=== PATIENT | male | born 1995 | race Caucasian/White ===

== ENCOUNTER 2017-03-23 12:36 | Emergency (ER) | payer OTHER ==
[2017-03-23 12:45] VITALS: BP 133/81; PULSE 93; RESP 18; TEMP 97.6
[2017-03-23] MEDS ORDERED: IBUPROFEN 600 MG TAB PO STA (13:04)
--- NOTE | 2017-03-23 13:07 | ED ---
General Adult HPI - General Chief complaint: Chest Pain Stated complaint: chest pain 3 days Time Seen by Provider: 03/23/17 12:57 Source: patient, RN notes reviewed Mode of arrival: ambulatory Limitations: no limitations - History of Present Illness Initial comments: Patient is a 21-year-old male who presents emergency room today with a chief complaint of chest pain 3 days. He doesn't that over the last 3 days she's been experiencing a constant "achy" type pain to the left side of the chest wall. He states it's a 4/10. He states it does seem to be worse certain movements at times the left shoulder. He denies any other complaints. Denies any injury or trauma. States never had similar symptoms in the past. Patient denies any recent fever, chills, shortness of breath, back pain, abdominal pain , nausea or vomiting, numbness or tingling, dysuria or hematuria, constipation or diarrhea, headaches or visual changes, or any other complaints. - Related Data Previous Rx's Medication Instructions Recorded Ibuprofen [Motrin] 600 mg PO Q6HR PRN #40 day 03/23/17 Allergies Allergy/AdvReac Type Severity Reaction Status Date / Time No Known Allergies Allergy Verified 03/23/17 13:11 Review of Systems ROS Statement: Those systems with pertinent positive or pertinent negative responses have been documented in the HPI. ROS Other: All systems not noted in ROS Statement are negative. Past Medical History Past Medical History: No Reported History History of Any Multi-Drug Resistant Organisms: None Reported Past Surgical History: No Surgical Hx Reported Past Psychological History: No Psychological Hx Reported Smoking Status: Current every day smoker Past Alcohol Use History: None Reported Past Drug Use History: Marijuana General Exam - General Exam Comments Initial Comments: General: The patient is awake and alert, in no distress, and does not appear acutely ill. Eye: Pupils are equal, round and reactive to light, extra-ocular movements are intact. No nystagmus. There is normal conjunctiva bilaterally. No signs of icterus. Ears, nose, mouth and throat: There are moist mucous membranes and no oral lesions. Neck: The neck is supple, there is no tenderness or JVD. Cardiovascular: There is a regular rate and rhythm. No murmur, rub or gallop is appreciated. Tender palpation to the left side of the anterior chest all towards the axilla. Respiratory: Lungs are clear to auscultation, respirations are non-labored, breath sounds are equal. No wheezes, stridor, rales, or rhonchi. Gastrointestinal: Soft, non-distended, non-tender abdomen without masses or organomegaly noted. There is no rebound or guarding present. No CVA tenderness. Bowel sounds are unremarkable. Musculoskeletal: Normal ROM, no tenderness. Strength 5/5. Sensation intact. Pulses equal bilaterally 2+. Neurological: A&O x 3. CN II-XII intact, There are no obvious motor or sensory deficits. Coordination appears grossly intact. Speech is normal. Skin: Skin is warm and dry and no rashes or lesions are noted. Psychiatric: Cooperative, appropriate mood & affect, normal judgment. Limitations: no limitations Course Vital Signs 03/23/17 03/23/17 12:43 12:50 Temperature 97.6 F Pulse Rate 93 Respiratory 18 18 Rate Blood Pressure 133/81 O2 Sat by Pulse 99 Oximetry EKG Findings - EKG Comments: EKG Findings:: EKG performed at 1252: A 12-lead EKG was performed and interpreted by me as showing the following: Rate is 72, and rhythm is normal sinus. There are normal QRS complexes and normal R-wave progression. ST segments have no elevation or depression, and PA segments appear normal. Medical Decision Making - Medical Decision Making Patient reexamined at this time shows no signs of distress. Patient chest x- ray reviewed and is negative for any acute abnormalities. His EKG shows normal sinus rhythm. His pain is on palpation anterior chest wall. Patient is advised to limit his physical activity follow-up family doctor over the next 2 days. States does have family doctor is unsure of his name. Will make an appointment. Patient advised to use anti-inflammatories for pain. Advised return to emergency room symptoms increase or worsen. States and is in agreement. Disposition Clinical Impression: Chest wall pain Disposition: HOME SELF-CARE Condition: Good Instructions: Costochondritis (ED) Additional Instructions: Please use medication as discussed. Please limit physical activity until follow -up family doctor. Please follow-up with family doctor in the next 2 days. Please return to emergency room if the symptoms increase or worsen or for any other concerns. Prescriptions: Ibuprofen [Motrin] 600 mg PO Q6HR PRN #40 day PRN Reason: Pain Referrals: None,Stated [Primary Care Provider] - 1-2 days Time of Disposition: 13:46
--- NOTE | 2017-03-23 13:26 | XR ---
EXAMINATION TYPE: XR chest 2V DATE OF EXAM: 03/23/2017 COMPARISON: NONE HISTORY: Chest pain TECHNIQUE: Frontal and lateral views of the chest are obtained. FINDINGS: Heart and mediastinum are normal. Lungs are clear. Diaphragm is normal bony thorax appears normal. IMPRESSION: Normal chest
== END 2017-03-23 13:52 | disposition home or self-care (01) ==
LOC: EC 12:36
DX: R07.89 Other chest pain (principal); F17.200 Nicotine dependence, unspecified, uncomplicated
CPT/HCPCS: 71020; 93005; 99285

== ENCOUNTER 2017-04-09 13:38 | Inpatient (IN) | payer OTHER ==
--- NOTE | 2017-04-09 14:19 | ED ---
General Adult HPI - General Source: patient, RN notes reviewed Mode of arrival: ambulatory Limitations: no limitations <Amber Pratt - Last Filed: 04/09/17 16:20> <King Baker - Last Filed: 04/09/17 16:26> - General Chief complaint: Chest Pain Stated complaint: Chest Pain Time Seen by Provider: 04/09/17 14:08 - History of Present Illness Initial comments: 21 yo male presents to the ER with cc of chest pain to the left side of the chest. Patient states stabbing type pain in his head on off the past 3 weeks. Patient states that he does smoke meat as well as he does use cigarettes. Patient states that he takes a deep breath the pain is worse. Patient states if he tries to think that the pain seems to improve. Patient states he hasn't had any increased shortness of breath with this. Patient denies any cough cold like symptoms. Patient states he was concerned due to the pains without that he should be seen again. He was seen a few weeks ago here and he told if it got worse to return if he states that he believes it got worse.Patient denies any recent fever, chills, back pain, abdominal pain, nausea vomiting, numbness or tingling, dysuria or hematuria, constipation or diarrhea, headaches or visual changes, or any other current symptoms. (Amber Pratt) - Related Data Home Medications Medication Instructions Recorded Confirmed No Known Home Medications [No 04/09/17 04/09/17 Known Home Medications] Allergies Allergy/AdvReac Type Severity Reaction Status Date / Time No Known Allergies Allergy Verified 04/09/17 14:49 Review of Systems ROS Other: All systems not noted in ROS Statement are negative. <Amber Pratt - Last Filed: 04/09/17 16:20> ROS Other: All systems not noted in ROS Statement are negative. <King Baker - Last Filed: 04/09/17 16:26> ROS Statement: Those systems with pertinent positive or pertinent negative responses have been documented in the HPI. Past Medical History Past Medical History: Asthma History of Any Multi-Drug Resistant Organisms: None Reported Past Surgical History: No Surgical Hx Reported Past Psychological History: No Psychological Hx Reported Smoking Status: Current every day smoker Past Alcohol Use History: None Reported, Occasional Past Drug Use History: Marijuana <Amber Pratt - Last Filed: 04/09/17 16:20> General Exam Limitations: no limitations <Amber Pratt - Last Filed: 04/09/17 16:20> <King Baker - Last Filed: 04/09/17 16:26> - General Exam Comments Initial Comments: General: The patient is awake and alert, in no distress, and does not appear acutely ill. Eye: Pupils are equal, round and reactive to light, extra-ocular movements are intact; there is normal conjunctiva bilaterally. No signs of icterus. Ears, nose, mouth and throat: There are moist mucous membranes and no oral lesions. Neck: The neck is supple, there is no tenderness. Cardiovascular: There is a regular rate and rhythm. No murmur, rub or gallop is appreciated. Respiratory: Lungs are clear to auscultation, respirations are non-labored, breath sounds are equal. No wheezes, stridor, rales, or rhonchi. Gastrointestinal: Soft, non-distended, non-tender abdomen without masses or organomegaly noted. There is no rebound or guarding present. No CVA tenderness. Bowel sounds are unremarkable. Back: There is no tenderness to palpation in the midline. There is no obvious deformity. No rashes noted. Musculoskeletal: Normal ROM, no tenderness, There is no pedal edema. There is no calf tenderness or swelling. Sensation intact. Pulses equal bilaterally 2+. Neurological: CN II-XII intact, There are no obvious motor or sensory deficits. Coordination appears grossly intact. Speech is normal. Skin: Skin is warm and dry and no rashes or lesions are noted. Psychiatric: Cooperative, appropriate mood & affect, normal judgment. (Amber Pratt) EKG Findings - EKG Comments: EKG Findings:: Markedly sinus bradycardia, ventricular rate 47, rightward axis, mild ST elevation noted diffusely throughout. Concern for possible pericarditis <Amber Pratt - Last Filed: 04/09/17 16:20> Medical Decision Making - Lab Data Result diagrams: 04/09/17 14:20 04/09/17 14:20 - Radiology Data Radiology results: report reviewed, image reviewed <Amber Pratt - Last Filed: 04/09/17 16:20> - Lab Data Result diagrams: 04/09/17 14:20 04/09/17 14:20 <King Baker - Last Filed: 04/09/17 16:26> - Medical Decision Making 21-year-old male presents for left-sided chest pain that is pleuritic in nature. This time lab work and imaging is reviewed. This was concerned due to some elevation of the ST segments throughout the EKG when compared to EKG from 1 week ago of concern for pericarditis. Lab work is negative at this time. This time we will admit the patient to Dr. Brown who Dr. Baker discussed the case with an order an echo cardiogram. The patient is in agreement with the plan. ( JaquanAmber rockwell) Is a 21-year-old male with complaint chest discomfort on again off again for a week. EKG shows small mildly elevated ST segment of multiple leads suggestive of pericarditis. Cardiac enzymes within normal limits. Chest x-ray negative. The patient will be admitted for observation cardiology consultation echocardiogram , Dr. Baker (King Baker) - Lab Data Lab Results 04/09/17 04/09/17 04/09/17 Range/Units 14:20 14:20 14:20 WBC 5.9 (4.0-11.0) k/uL RBC 5.01 (4.30-5.90) m/uL Hgb 16.2 (13.0-17.5) gm/dL Hct 47.1 (39.0-53.0) % MCV 93.9 (80.0-100.0) fL MCH 32.2 (25.0-35.0) pg MCHC 34.3 (31.0-37.0) g/dL RDW 12.5 (11.5-15.5) % Plt Count 199 (150-450) k/uL Neutrophils % 54 % Lymphocytes % 36 % Monocytes % 6 % Eosinophils % 2 % Basophils % 0 % Neutrophils # 3.2 (1.3-7.7) k/uL Lymphocytes # 2.1 (1.0-4.8) k/uL Monocytes # 0.4 (0-1.0) k/uL Eosinophils # 0.1 (0-0.7) k/uL Basophils # 0.0 (0-0.2) k/uL ESR (0-15) mm/hr D-Dimer <0.17 (<0.60) mg/L FEU Sodium 144 (137-145) mmol/L Potassium 4.3 (3.5-5.1) mmol/L Chloride 106 (98-107) mmol/L Carbon Dioxide 27 (22-30) mmol/L Anion Gap 11 mmol/L BUN 13 (9-20) mg/dL Creatinine 0.90 (0.66-1.25) mg/dL Est GFR (MDRD) Af Amer >60 (>60 ml/min/1.73 sqM) Est GFR (MDRD) Non-Af >60 (>60 ml/min/1.73 sqM) Glucose 76 (74-99) mg/dL Calcium 10.2 (8.4-10.2) mg/dL Total Bilirubin 0.7 (0.2-1.3) mg/dL AST 28 (17-59) U/L ALT 28 (21-72) U/L Alkaline Phosphatase 66 (38-126) U/L Creatine Kinase (55-170) U/L CK-MB (CK-2) (0.0-2.4) ng/mL Troponin I (0.000-0.034) ng/mL C-Reactive Protein (<10.0) mg/L Total Protein 7.7 (6.3-8.2) g/dL Albumin 5.0 (3.5-5.0) g/dL 04/09/17 04/09/17 04/09/17 Range/Units 14:20 14:20 14:20 WBC (4.0-11.0) k/uL RBC (4.30-5.90) m/uL Hgb (13.0-17.5) gm/dL Hct (39.0-53.0) % MCV (80.0-100.0) fL MCH (25.0-35.0) pg MCHC (31.0-37.0) g/dL RDW (11.5-15.5) % Plt Count (150-450) k/uL Neutrophils % % Lymphocytes % % Monocytes % % Eosinophils % % Basophils % % Neutrophils # (1.3-7.7) k/uL Lymphocytes # (1.0-4.8) k/uL Monocytes # (0-1.0) k/uL Eosinophils # (0-0.7) k/uL Basophils # (0-0.2) k/uL ESR 2 (0-15) mm/hr D-Dimer (<0.60) mg/L FEU Sodium (137-145) mmol/L Potassium (3.5-5.1) mmol/L Chloride (98-107) mmol/L Carbon Dioxide (22-30) mmol/L Anion Gap mmol/L BUN (9-20) mg/dL Creatinine (0.66-1.25) mg/dL Est GFR (MDRD) Af Amer (>60 ml/min/1.73 sqM) Est GFR (MDRD) Non-Af (>60 ml/min/1.73 sqM) Glucose (74-99) mg/dL Calcium (8.4-10.2) mg/dL Total Bilirubin (0.2-1.3) mg/dL AST (17-59) U/L ALT (21-72) U/L Alkaline Phosphatase (38-126) U/L Creatine Kinase (55-170) U/L CK-MB (CK-2) 1.5 (0.0-2.4) ng/mL Troponin I <0.012 (0.000-0.034) ng/mL C-Reactive Protein <5.0 (<10.0) mg/L Total Protein (6.3-8.2) g/dL Albumin (3.5-5.0) g/dL 04/09/17 Range/Units 14:20 WBC (4.0-11.0) k/uL RBC (4.30-5.90) m/uL Hgb (13.0-17.5) gm/dL Hct (39.0-53.0) % MCV (80.0-100.0) fL MCH (25.0-35.0) pg MCHC (31.0-37.0) g/dL RDW (11.5-15.5) % Plt Count (150-450) k/uL Neutrophils % % Lymphocytes % % Monocytes % % Eosinophils % % Basophils % % Neutrophils # (1.3-7.7) k/uL Lymphocytes # (1.0-4.8) k/uL Monocytes # (0-1.0) k/uL Eosinophils # (0-0.7) k/uL Basophils # (0-0.2) k/uL ESR (0-15) mm/hr D-Dimer (<0.60) mg/L FEU Sodium (137-145) mmol/L Potassium (3.5-5.1) mmol/L Chloride (98-107) mmol/L Carbon Dioxide (22-30) mmol/L Anion Gap mmol/L BUN (9-20) mg/dL Creatinine (0.66-1.25) mg/dL Est GFR (MDRD) Af Amer (>60 ml/min/1.73 sqM) Est GFR (MDRD) Non-Af (>60 ml/min/1.73 sqM) Glucose (74-99) mg/dL Calcium (8.4-10.2) mg/dL Total Bilirubin (0.2-1.3) mg/dL AST (17-59) U/L ALT (21-72) U/L Alkaline Phosphatase (38-126) U/L Creatine Kinase 107 (55-170) U/L CK-MB (CK-2) (0.0-2.4) ng/mL Troponin I (0.000-0.034) ng/mL C-Reactive Protein (<10.0) mg/L Total Protein (6.3-8.2) g/dL Albumin (3.5-5.0) g/dL Disposition Time of Disposition: 16:21 Decision Date: 04/09/17 Decision Time: 16:21 <Amber Pratt - Last Filed: 04/09/17 16:20> <King Baker - Last Filed: 04/09/17 16:26> Clinical Impression: Pericarditis, Chest wall pain Disposition: [facility] Condition: Stable Referrals: Eric Abbasi MD [Primary Care Provider] - 1-2 days
[2017-04-09 14:41] LABS: Basophils % (A) 0 %; CH 32.8; Eosinophils # (A) 0.1 k/uL (0-0.7); Eosinophils % (A) 2 %; HCT 47.1 % (39.0-53.0); HDW 2.35; HGB 16.2 gm/dL (13.0-17.5); Luc # (Auto) 0.12; Luc % (Auto) 2; Lymphocytes # (A) 2.1 k/uL (1.0-4.8); Lymphocytes % (A) 36 %; MCH 32.2 pg (25.0-35.0); MCHC 34.3 g/dL (31.0-37.0); MCV 93.9 fL (80.0-100.0); Mean Platelet Volume 7.4; Monocytes # (A) 0.4 k/uL (0-1.0); Monocytes % (A) 6 %; Neutrophils # (A) 3.2 k/uL (1.3-7.7); Neutrophils % (A) 54 %; RBC 5.01 m/uL (4.30-5.90); RDW 12.5 % (11.5-15.5); WBC 5.9 k/uL (4.0-11.0); WBC (Perox) 5.41
[2017-04-09 14:52] LABS: ALT 28 U/L (21-72); AST 28 U/L (17-59); Alkaline Phosphatase 66 U/L (38-126); Anion Gap 11 mmol/L; Blood Urea Nitrogen 13 mg/dL (9-20); Calcium 10.2 mg/dL (8.4-10.2); Carbon Dioxide 27 mmol/L (22-30); Chloride 106 mmol/L (98-107); Glucose 76 mg/dL (74-99); Non-African American GFR(MDRD) >60 (>60 ml/min/1.73 sqM); Potassium 4.3 mmol/L (3.5-5.1); Sodium 144 mmol/L (137-145); Total Bilirubin 0.7 mg/dL (0.2-1.3); Total Protein 7.7 g/dL (6.3-8.2)
--- NOTE | 2017-04-09 14:58 | XR ---
EXAMINATION TYPE: XR chest 2V DATE OF EXAM: 04/09/2017 COMPARISON: 03/23/17 HISTORY: Chest pain TECHNIQUE: Frontal and lateral views of the chest are obtained. FINDINGS: There is no focal air space opacity. No evidence for pneumothorax. No pleural effusion. The cardiac silhouette size is within normal limits. The osseous structures are grossly intact. IMPRESSION: 1. No acute cardiopulmonary process.
[2017-04-09 15:14] LABS: Creatine Kinase MB 1.5 ng/mL (0.0-2.4); Troponin I <0.012 ng/mL (0.000-0.034)
[2017-04-09] MEDS ORDERED: NALOXONE 0.4 MG/ML 1 ML VIAL IV PRN (16:21)
[2017-04-09] MEDS ORDERED: KETOROLAC 30 MG/ML 1 ML VIAL IVP PRN (16:21)
[2017-04-09] MEDS: SODIUM CHLORIDE 0.9% 1,000 ML IV SCH (17:47)
[2017-04-09 20:22] LABS: Creatine Kinase 86 U/L (55-170)
[2017-04-09 20:36] LABS: Creatine Kinase MB 1.1 ng/mL (0.0-2.4); Troponin I <0.012 ng/mL (0.000-0.034)
[2017-04-10 03:28] LABS: Basophils % (A) 0 %; CH 32.1; CHCM 33.6; Eosinophils # (A) 0.2 k/uL (0-0.7); Eosinophils % (A) 3 %; HCT 45.5 % (39.0-53.0); HDW 2.32; HGB 15.6 gm/dL (13.0-17.5); Luc # (Auto) 0.23; Luc % (Auto) 3; Lymphocytes # (A) 3.2 k/uL (1.0-4.8); Lymphocytes % (A) 41 %; MCHC 34.4 g/dL (31.0-37.0); MCV 95.8 fL (80.0-100.0); Mean Platelet Volume 7.1; Monocytes # (A) 0.4 k/uL (0-1.0); Monocytes % (A) 5 %; Neutrophils # (A) 3.6 k/uL (1.3-7.7); Neutrophils % (A) 47 %; RBC 4.75 m/uL (4.30-5.90); RDW 12.3 % (11.5-15.5); WBC 7.7 k/uL (4.0-11.0); WBC (Perox) 7.82
[2017-04-10 03:37] LABS: Creatine Kinase 83 U/L (55-170)
[2017-04-10 03:39] LABS: ALT 34 U/L (21-72); AST 25 U/L (17-59); Alkaline Phosphatase 62 U/L (38-126); Anion Gap 15 mmol/L; Blood Urea Nitrogen 13 mg/dL (9-20); Calcium 9.8 mg/dL (8.4-10.2); Carbon Dioxide 23 mmol/L (22-30); Chloride 106 mmol/L (98-107); Glucose 93 mg/dL (74-99); Non-African American GFR(MDRD) >60 (>60 ml/min/1.73 sqM); Potassium 3.9 mmol/L (3.5-5.1); Sodium 144 mmol/L (137-145); Total Bilirubin 0.5 mg/dL (0.2-1.3); Total Protein 7.1 g/dL (6.3-8.2)
[2017-04-10 03:49] LABS: Troponin I <0.012 ng/mL (0.000-0.034)
[2017-04-10] MEDS: SODIUM CHLORIDE 0.9% 1,000 ML IV SCH (06:36)
[2017-04-10] MEDS ORDERED: ASPIRIN 325 MG TAB PO SCH (09:00)
[2017-04-10] MEDS ORDERED: COLCHICINE 0.6 MG TAB PO SCH (09:00)
--- NOTE | 2017-04-10 09:15 | P.CRDCN ---
History of Present Illness Consult date: 04/10/17 Requesting physician: Samir Walton Consult reason: chest pain Chief complaint: Chest pain History of present illness: This is a pleasant 21-year-old male with history of nicotine dependence, he states he smokes one pack of cigarettes per day, smokes marijuana daily, no other drug use, no family history of premature coronary artery disease or sudden cardiac , denies hypertension, no diabetes, no hyperlipidemia. He states he's been experiencing chest pain which she describes as a pressure in the chest feels like someone is pressing down on his chest, he has been experiencing this off and on for the past 2 weeks. He denies any recent viral illness or fever. EKG on arrival here showed a normal sinus with diffuse concave ST elevation, Chest x-ray does not reveal any acute cardiopulmonary process. CBC normal, d-dimer negative. Potassium 3.9, BUN 13, creatinine 0.9. Troponins have been negative 3. C-reactive protein less than 5. At the time of my examination this morning, patient denies any chest pain. He was started on colchicine in the emergency room yesterday for suspicion of pericarditis. Past Medical History Past Medical History: Asthma History of Any Multi-Drug Resistant Organisms: None Reported Past Surgical History: No Surgical Hx Reported Past Anesthesia/Blood Transfusion Reactions: No Reported Reaction Smoking Status: Current every day smoker - Past Family History Father Additional Family Medical History / Comment(s): hip surgery Medications and Allergies Home Medications Medication Instructions Recorded Confirmed Type No Known Home Medications [No 04/09/17 04/09/17 History Known Home Medications] Allergies Allergy/AdvReac Type Severity Reaction Status Date / Time No Known Allergies Allergy Verified 04/09/17 14:49 Physical Exam Vitals: Vital Signs Temp Pulse Pulse Resp BP BP Pulse Ox 04/10/17 04:00 97.6 F 50 L 16 97/52 100 04/09/17 23:36 61 16 04/09/17 23:32 97.4 F L 61 16 102/55 98 04/09/17 20:00 97.1 F L 53 L 16 110/63 99 04/09/17 17:00 97.1 F L 46 L 20 109/63 100 04/09/17 16:20 98.2 F 53 L 18 108/68 100 04/09/17 15:23 97.8 F 52 L 18 106/65 99 04/09/17 14:11 18 04/09/17 13:56 98.3 F 82 18 128/73 100 Intake and Output 04/09/17 04/10/17 04/10/17 22:59 06:59 14:59 Intake Total 0 Balance 0 Intake: Intake, IV Titration 0 Amount Sodium Chloride 0.9% 1, 0 000 ml @ 80 mls/hr IV . [id number] DOMENICO Rx#:[id number] Other: # Voids 1 Weight 61.1 kg PHYSICAL EXAMINATION: HEENT: Head is atraumatic, normocephalic. Pupils equal, round. Neck is supple. There is no elevated jugular venous pressure. HEART EXAMINATION: Heart S1, S2 normal. No murmur or gallop heard. CHEST EXAMINATION: Lungs are clear to auscultation and precussion. No chest wall tenderness is noted on palpation or with deep breathing. ABDOMEN: Soft, nontender. Bowel sounds are heard. No organomegaly noted. EXTREMITIES: 2+ peripheral pulses with no evidence of peripheral edema and no calf tenderness noted. NEUROLOGIC patient is awake, alert and oriented -3. . Results 04/10/17 01:58 04/10/17 01:58 Cardiac Enzymes 04/09/17 04/09/17 04/09/17 Range/Units 14:20 14:20 19:46 AST 28 (17-59) U/L CK-MB (CK-2) 1.5 1.1 (0.0-2.4) ng/mL Troponin I <0.012 <0.012 (0.000-0.034) ng/mL 04/10/17 04/10/17 Range/Units 01:58 01:58 AST 25 (17-59) U/L CK-MB (CK-2) 1.0 (0.0-2.4) ng/mL Troponin I <0.012 (0.000-0.034) ng/mL CBC 04/09/17 04/10/17 Range/Units 14:20 01:58 WBC 5.9 7.7 (4.0-11.0) k/uL RBC 5.01 4.75 (4.30-5.90) m/uL Hgb 16.2 15.6 (13.0-17.5) gm/dL Hct 47.1 45.5 (39.0-53.0) % Plt Count 199 194 (150-450) k/uL Comprehensive Metabolic Panel 04/09/17 04/10/17 Range/Units 14:20 01:58 Sodium 144 144 (137-145) mmol/L Potassium 4.3 3.9 (3.5-5.1) mmol/L Chloride 106 106 (98-107) mmol/L Carbon Dioxide 27 23 (22-30) mmol/L BUN 13 13 (9-20) mg/dL Creatinine 0.90 0.90 (0.66-1.25) mg/dL Glucose 76 93 (74-99) mg/dL Calcium 10.2 9.8 (8.4-10.2) mg/dL AST 28 25 (17-59) U/L ALT 28 34 (21-72) U/L Alkaline Phosphatase 66 62 (38-126) U/L Total Protein 7.7 7.1 (6.3-8.2) g/dL Albumin 5.0 4.7 (3.5-5.0) g/dL Current Medications Generic Name Dose Route Start Last Admin Trade Name Freq PRN Reason Stop Dose Admin Aspirin 650 mg 04/10/17 09:00 Aspirin PO BID DOMENICO Colchicine 0.6 mg 04/10/17 09:00 Colcrys PO DAILY DOMENICO Sodium Chloride 1,000 mls @ 80 mls/hr 04/09/17 16:30 04/10/17 06:36 Saline 0.9% IV Not Given .[id number] DOMENICO Naloxone HCl 0.2 mg 04/09/17 16:21 Narcan IV Q2M PRN Opioid Reversal Intake and Output 04/09/17 04/10/17 04/10/17 22:59 06:59 14:59 Intake Total 0 Balance 0 Intake: Intake, IV Titration 0 Amount Sodium Chloride 0.9% 1, 0 000 ml @ 80 mls/hr IV . [id number] DOMENICO Rx#:[id number] Other: # Voids 1 Weight 61.1 kg 04/10/17 01:58 04/10/17 01:58 EKG Interpretations (text) EKG shows diffuse concave upward ST elevation Assessment and Plan Plan: Assessment and plan #1 chest pain atypical for acute coronary syndrome, possible pleurisy. #2 nicotine dependence #3 daily marijuana use Plan We will obtain a sed rate, echocardiogram with Doppler study. Patient has been initiated on Colchicine, which we will discontinue. We will add nonsteroidal anti-inflammatories his medication regime. Further recommendations to follow. Patient has been advised regarding the importance of nicotine cessation. DNP note has been reviewed, I agree with a documented findings and plan of care. Patient was seen and examined.
[2017-04-10] MEDS ORDERED: IBUPROFEN 400 MG TAB PO SCH (13:00)
[2017-04-10 15:02] VITALS: BP 110/68; PULSE 55; RESP 18; TEMP 97.3
--- NOTE | 2017-04-11 09:26 | ECHOF ---
Referral Reason:concern for pericarditis MEASUREMENTS -------- HEIGHT: 177.8 cm WEIGHT: 60.8 kg BP: RVIDd: 1.9 cm (< 3.3) IVSd: 0.8 cm (0.6 - 1.1) LVIDd: 4.6 cm (3.9 - 5.3) LVPWd: 0.8 cm (0.6 - 1.1) IVSs: 1.2 cm LVIDs: 2.8 cm LVPWs: 1.5 cm LAESV Index (A-L): 23.35 ml/m Ao Diam: 2.7 cm (2.0 - 3.7) AV Cusp: 2.3 cm (1.5 - 2.6) LA Diam: 2.2 cm (2.7 - 3.8) MV EXCURSION: 19.262 mm (> 18.000) MV EF SLOPE: 164 mm/s (70 - 150) EPSS: 1.5 cm MV E Khoi: 0.73 m/s MV DecT: 388 ms MV A Khoi: 0.32 m/s MV E/A Ratio: 2.25 RAP: 5.00 mmHg RVSP: 9.20 mmHg FINDINGS -------- Resting bradycardia (HR<60bpm). This was a technically good study. Overall left ventricular systolic function is normal with, an EF between 60 - 65 %. The right ventricle is normal in size and function. Normal LA size by volume 22+/-6 ml/m2. The right atrium is normal in size. The aortic valve is trileaflet, and appears structurally normal. No aortic stenosis or regurgitation. The mitral valve leaflets are mildly thickened. There is trace mitral regurgitation. Trace tricuspid regurgitation present. There is no evidence of pulmonary hypertension. The right ventricular systolic pressure, as measured by Doppler, is 9.20mmHg. Pulmonic valve appears structurally normal. The aortic root size is normal. Normal inferior vena cava with normal inspiratory collapse consistent with estimated right atrial pressure of 5 mmHg. The pericardium is normal. There is no pericardial effusion. CONCLUSIONS -------- 1. Resting bradycardia (HR<60bpm). 2. The right ventricular systolic pressure, as measured by Doppler, is 9.20mmHg. 3. The aortic root size is normal. 4. There is no pericardial effusion. 5. This was a technically good study. 6. Overall left ventricular systolic function is normal with, an EF between 60 - 65 %. 7. Normal LA size by volume 22+/-6 ml/m2. 8. The aortic valve is trileaflet, and appears structurally normal. No aortic stenosis or regurgitation. 9. The mitral valve leaflets are mildly thickened. 10. There is trace mitral regurgitation. 11. Trace tricuspid regurgitation present. 12. There is no evidence of pulmonary hypertension. IVORY CARVER: Shay Osorio RDCS
--- NOTE | 2017-04-13 08:28 | HP ---
This dictation is both H&P and discharge summary. The patient is a 21-year-old who came in with complaints of chest pain and shortness of breath and decreased exercise performance. Patient does not have any family history of sudden cardiac and patient has on and off sharp chest pains changes with position. Patient's chest x-ray is essentially within normal limits. Patient's chest pain is nonpleuritic in nature, not associated with food. Patient was evaluated by Cardiology and please refer to their dictation for further details. The patient has diffuse concave ST elevation and patient denied any recent viral illness or fever. Patient was diagnosed with pericarditis and patient was started on NSAIDs. Colchicine was discontinued. Patient is clinically doing well. Will be discharged on 10 days of NSAIDs. Patient wanted to be discharged. The patient will be discharged on 10 days of NSAIDs to follow with primary care physician and Cardiology as an outpatient. Patient's C-reactive protein is less than 5. Troponins are negative. Creatinine is 0.9 REVIEW OF SYSTEMS: ( ) CARDIOVASCULAR: As described in HPI. PAST MEDICAL HISTORY: Significant for asthma. Patient does smoke. Occasional use of marijuana. FAMILY HISTORY: Father had some kind of hip surgery. Denied any premature coronary artery disease in the family. HOME MEDICATIONS: None. ALLERGIES: No known drug allergies. PHYSICAL EXAMINATION: Temperature 97.5, pulse 50, respiratory rate of 16, blood pressure 97/52, saturating at 100% on room air. ( ) LABORATORY DATA: CBC and CMP essentially within normal limits. Troponins are negative. Chest x-ray negative. D-dimer is less than 0.17. ASSESSMENT AND PLAN: 1. Chest pain with diffuse ST-T wave changes, ST elevations. Consistent with pericarditis. Patient will be discharged on naproxen for 10 days to follow with primary care physician in about a week. 2. Nicotine abuse. Extensive counseling was provided. 3. Marijuana use. Counseling was provided. 4. If patient has any active reflux symptoms the patient was asked to take over -the-counter ranitidine or if he has any acid reflux symptoms from naproxen. 5. Mild sinus bradycardia and low normal blood pressures are normal for his age. This dictation is both H&P and discharge summary. [facility]
== END 2017-04-10 16:19 | disposition home or self-care (01) | DRG 194 ==
LOC: EC 13:38 → 6SEL 16:23
PROVIDERS: ADMIT Internal Medicine; ATTEND Internal Medicine
DX: R09.1 Pleurisy (principal); I31.9 Disease of pericardium, unspecified; F17.210 Nicotine dependence, cigarettes, uncomplicated; F12.90 Cannabis use, unspecified, uncomplicated; J45.909 Unspecified asthma, uncomplicated
CPT/HCPCS: 36415; 71020; 80053; 82550; 82553; 84484; 85025; 85379; 85652; 86140; 93005; 93306; 99285

== ENCOUNTER 2017-06-22 02:38 | Emergency (ER) | payer OTHER ==
[2017-06-22 02:43] VITALS: BP 131/66; PULSE 98; RESP 20; TEMP 98.1
[2017-06-22] MEDS ORDERED: ALPRAZolam 0.5 MG TAB PO STA (02:58)
--- NOTE | 2017-06-22 03:02 | ED ---
General Adult HPI - General Chief complaint: Chest Pain Stated complaint: Chest Pain Time Seen by Provider: 06/22/17 02:50 Source: patient, RN notes reviewed Mode of arrival: ambulatory Limitations: no limitations - History of Present Illness Initial comments: This a 22-year-old male presents emergency Department chief complaint palpitations. Patient states he has intermittent episodes where he feels like his heart is racing superfast. He states it makes him uncomfortable. He states after this was happening he becomes very worried that something was wrong and starts having anxiety and panic attacks. Patient was admitted approximately 2 and half months ago for chest pain in which she had a complete cardiac workup including echocardiogram, cardiology consult, repeat troponin, EKGs. Patient had no acute findings. At that time concerned about possible pericarditis but had no evidence of this. Patient states he is a smoker does smoke marijuana but denies any other illicit drug use. Patient states that he states is very anxious at this time and cannot sleep streaking the emergency department. Patient has a history of cardiac issues denies any hypertension or hyperlipidemia. - Related Data Previous Rx's Medication Instructions Recorded ALPRAZolam [Xanax] 0.25 mg PO DAILY PRN #10 tab 06/22/17 Allergies Allergy/AdvReac Type Severity Reaction Status Date / Time No Known Allergies Allergy Verified 04/09/17 14:49 Review of Systems ROS Statement: Those systems with pertinent positive or pertinent negative responses have been documented in the HPI. ROS Other: All systems not noted in ROS Statement are negative. Past Medical History Past Medical History: Asthma History of Any Multi-Drug Resistant Organisms: None Reported Past Surgical History: No Surgical Hx Reported Past Anesthesia/Blood Transfusion Reactions: No Reported Reaction Past Psychological History: No Psychological Hx Reported Smoking Status: Current every day smoker Past Alcohol Use History: Occasional Past Drug Use History: Marijuana - Past Family History Father Additional Family Medical History / Comment(s): hip surgery General Exam Limitations: no limitations General appearance: alert, in no apparent distress, anxious Head exam: Present: atraumatic, normocephalic, normal inspection Eye exam: Present: normal appearance, PERRL, EOMI. Absent: scleral icterus, conjunctival injection, periorbital swelling ENT exam: Present: normal exam, normal oropharynx, mucous membranes moist Neck exam: Present: normal inspection. Absent: tenderness, meningismus, lymphadenopathy Respiratory exam: Present: normal lung sounds bilaterally. Absent: respiratory distress, wheezes, rales, rhonchi, stridor Cardiovascular Exam: Present: regular rate, normal rhythm, normal heart sounds. Absent: systolic murmur, diastolic murmur, rubs, gallop, clicks Neurological exam: Present: alert, oriented X3, CN II-XII intact Psychiatric exam: Present: anxious Skin exam: Present: warm, dry, intact, normal color. Absent: rash Course Vital Signs 06/22/17 02:40 Temperature 98.1 F Pulse Rate 98 Respiratory 20 Rate Blood Pressure 131/66 O2 Sat by Pulse 96 Oximetry EKG Findings - EKG Comments: EKG Findings:: EKG performed at 2:48 normal sinus rhythm with a rate of 83 CA interval 148 QRS duration 94 QT/QTC 348/408 Medical Decision Making - Medical Decision Making 22-year-old male presented for palpitations. Patient's had a workup with cardiology which included echo and EKGs troponin. Patient is complaining of on and off symptoms which makes him anxious. He states that he needs something for anxiety. Patient we given Xanax only a short prescription and follow-up with Dr. Georges. Return parameters were discussed. Disposition Clinical Impression: Palpitations, Anxiety Disposition: HOME SELF-CARE Condition: Stable Instructions: Palpitations (ED) Additional Instructions: Please return to the Emergency Department if symptoms worsen or any other concerns. Prescriptions: ALPRAZolam [Xanax] 0.25 mg PO DAILY PRN #10 tab PRN Reason: Anxiety Referrals: Ray Young Jr, DO [Primary Care Provider] - 1-2 days Time of Disposition: 03:02
== END 2017-06-22 03:14 | disposition home or self-care (01) ==
LOC: EC 02:38
DX: R00.2 Palpitations (principal); F41.0 Panic disorder [episodic paroxysmal anxiety]; R07.9 Chest pain, unspecified; F17.200 Nicotine dependence, unspecified, uncomplicated
CPT/HCPCS: 93005; 99284

== ENCOUNTER 2018-03-16 16:37 | Emergency (ER) | payer OTHER ==
[2018-03-16 16:48] VITALS: BP 113/64; PULSE 59; RESP 18; TEMP 98.7
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
== END 2018-03-16 18:22 | disposition home or self-care (01) ==
LOC: EC 16:37
DX: S90.01XA Contusion of right ankle, initial encounter (principal); F17.200 Nicotine dependence, unspecified, uncomplicated; Z79.899 Other long term (current) drug therapy; W22.8XXA Striking against or struck by other objects, initial encounter
CPT/HCPCS: 99284

== ENCOUNTER 2019-03-20 09:48 | Emergency (ER) | payer OTHER ==
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
--- NOTE | 2019-03-20 10:49 | XR ---
EXAMINATION TYPE: XR Hip LT and AP Pelvis , 3 VIEWS DATE OF EXAM ORDERED: 03/20/2019 HISTORY: Pain. COMPARISON: None.. FINDINGS: Bony structures about the pelvis are normal. No fracture is seen. Both hip joints are well -maintained. The left hip is unremarkable. IMPRESSION: NO ACUTE OSSEOUS LESION.
[2019-03-20 11:59] VITALS: BP 100/62; PULSE 61; RESP 16; TEMP 97.9
== END 2019-03-20 12:09 | disposition home or self-care (01) ==
LOC: EC 09:48
DX: S70.02XA Contusion of left hip, initial encounter (principal); M25.522 Pain in left elbow; F17.200 Nicotine dependence, unspecified, uncomplicated; V18.9XXA Unspecified pedal cyclist injured in noncollision transport accident in traffic accident, initial encounter; Y92.89 Other specified places as the place of occurrence of the external cause
CPT/HCPCS: 73502; 99284

== ENCOUNTER → 2020-07-04 | Outpatient (CLI) | payer OTHER | END | disposition home or self-care (01) | LOC: LABWHC1 11:21 | PROVIDERS: ATTEND Emergency Medicine | DX: Z20.828 Contact with and (suspected) exposure to other viral communicable diseases (principal) | CPT/HCPCS: U0003; C9803 ==

== ENCOUNTER 2020-08-24 06:36 | Emergency (ER) | payer OTHER ==
[2020-08-24] MEDS ORDERED: LIDOCAINE 1% INJ 10MG/ML (20 ML MDV) SQ ONE (06:55)
--- NOTE | 2020-08-24 07:24 | ED ---
Wound/Laceration HPI - General Chief Complaint: Wound/Laceration Stated Complaint: Rt arm lac - [facility] Time Seen by Provider: 08/24/20 06:43 Source: patient Mode of arrival: ambulatory Limitations: no limitations - History of Present Illness Initial Comments: 25-year-old male presenting today for chief complaint of right forearm laceration. Patient states she is cup I machine at work he denies injection. Patient states his tetanus up-to-date denies any limitations range of motion he denies any known foreign body. Patient states he does not feel there is risk of foreign body. He denies additional complaints upon arrival he appears well nontoxic bleeding controlled. - Related Data Home Medications Medication Instructions Recorded Confirmed Ibuprofen [Motrin Ib] 600 mg PO TID PRN 03/16/18 03/20/19 Previous Rx's Medication Instructions Recorded Naproxen [EC-Naproxen] 500 mg PO BID #20 tablet. 03/20/19 Allergies Allergy/AdvReac Type Severity Reaction Status Date / Time No Known Allergies Allergy Verified 08/24/20 06:42 Review of Systems ROS Statement: Those systems with pertinent positive or pertinent negative responses have been documented in the HPI. ROS Other: All systems not noted in ROS Statement are negative. Past Medical History Past Medical History: Asthma, Thyroid Disorder History of Any Multi-Drug Resistant Organisms: None Reported Past Surgical History: No Surgical Hx Reported Past Anesthesia/Blood Transfusion Reactions: No Reported Reaction Past Psychological History: No Psychological Hx Reported Smoking Status: Current every day smoker Past Alcohol Use History: Occasional Past Drug Use History: Marijuana - Past Family History Father Additional Family Medical History / Comment(s): hip surgery General Exam - General Exam Comments Initial Comments: General: The patient is awake and alert, in no distress, and does not appear acutely ill. Eye: Pupils are equal, round and reactive to light, extra-ocular movements are intact. No nystagmus. There is normal conjunctiva bilaterally. No signs of icterus. Musculoskeletal: Normal ROM, no tenderness. Strength 5/5of digits of hand. Sensation intact. Radial pulses equal bilaterally 2+. Neurological: A&O x 3. CN II-XII intact grossly, There are no obvious motor or sensory deficits. Coordination appears grossly intact. Speech is normal. Skin: Skin is warm and dry and no rashes. 3cm laceration of the right forearm radial/dorsal aspect. No tendon exposure only exposure of adipose. no bleeding. Psychiatric: Cooperative, appropriate mood & affect, normal judgment. Limitations: no limitations Course Vital Signs 08/24/20 08/24/20 06:39 07:37 Temperature 98.6 F 98.1 F Pulse Rate 82 78 Respiratory 18 14 Rate Blood Pressure 117/76 123/88 O2 Sat by Pulse 97 100 Oximetry Procedures - Laceration Laceration #1 Consent Obtained: verbal consent Indication: laceration Site: upper extremity Size (cm): 3 Description: linear Depth: simple, single layer Anesthetic Used: lidocaine 1% Anesthesia Technique: local infiltration Amount (mls): 1 Pre-repair: wound explored, irrigated extensively, deep structures intact Type of Sutures: nylon Size of Sutures: 4-0 Number of Sutures: 4 Technique: simple, interrupted Patient Tolerated Procedure: well, no complications Medical Decision Making - Medical Decision Making no deep injury or tendon injury noted. no FB noted. irrigated wound. closed. patient tolerated procedure well. no complications. educated on return parameters.Patietn case discussed with Dr. Rockwell pt discharged appearing werll. Disposition Clinical Impression: Arm laceration Disposition: HOME SELF-CARE Condition: Good Instructions (If sedation given, give patient instructions): Care For Your Stitches (ED), Laceration (ED) Additional Instructions: Please use medication as discussed. Please follow-up for suture removal in 7-10 days, watch for redness, drainage, swelling and increasing pain--thesea re signs of infection as well as fever. Please return to emergency room if the symptoms increase or worsen or for any other concerns. Is patient prescribed a controlled substance at d/c from ED?: No Referrals: Ray Young Jr, [Primary Care Provider] - 1-2 days Time of Disposition: 07:24
[2020-08-24 07:38] VITALS: BP 123/88; PULSE 78; RESP 14; TEMP 98.1
== END 2020-08-24 07:38 | disposition home or self-care (01) ==
LOC: EC 06:36
DX: S51.811A Laceration without foreign body of right forearm, initial encounter (principal); F17.200 Nicotine dependence, unspecified, uncomplicated; W31.9XXA Contact with unspecified machinery, initial encounter; Y92.69 Other specified industrial and construction area as the place of occurrence of the external cause; Y99.0 Civilian activity done for income or pay
CPT/HCPCS: 99282; 12002; J2001

== ENCOUNTER 2021-01-24 18:49 | Emergency (ER) | payer OTHER ==
--- NOTE | 2021-01-24 19:40 | XR ---
EXAMINATION TYPE: XR chest 2V DATE OF EXAM: 01/24/2021 COMPARISON: 04/09/2017 HISTORY: Possible foreign body TECHNIQUE: 2 views FINDINGS: Heart and mediastinum are normal. Lungs are clear. Diaphragm is normal. Bony thorax is inta ct. There is no evidence of radiopaque foreign body. There is no evidence of atelectasis. IMPRESSION: Normal chest. No change.
--- NOTE | 2021-01-24 20:32 | ED ---
Recheck HPI - General Chief Complaint: Recheck/Abnormal Lab/Rx Stated Complaint: recheck Time Seen by Provider: 01/24/21 19:50 Source: patient Mode of arrival: ambulatory Limitations: no limitations - History of Present Illness Initial Comments: Patient is a 25-year-old male presenting to the emergency department with concerns of a possible pill stuck in his throat. Patient states about 4 hours prior to arrival he took 2 ibuprofen, salt him at the same time and feels like they went down the wrong way. He states he coughed a bunch and one of the pills did, but he feels like the other 1 is lodged in his throat. He has had a few episodes of vomiting, he is able to keep liquids down. He states he is having some mild sore throat but no difficulty in breathing. He is talking without difficulty. He has no pertinent past medical history and takes no medications. No fevers or chills. He has no further complaints. - Related Data Home Medications Medication Instructions Recorded Confirmed Ibuprofen [Motrin Ib] 600 mg PO TID PRN 03/16/18 03/20/19 Previous Rx's Medication Instructions Recorded Naproxen [EC-Naproxen] 500 mg PO BID #20 tablet. 03/20/19 Allergies Allergy/AdvReac Type Severity Reaction Status Date / Time No Known Allergies Allergy Verified 01/24/21 19:08 Review of Systems ROS Statement: Those systems with pertinent positive or pertinent negative responses have been documented in the HPI. ROS Other: All systems not noted in ROS Statement are negative. Past Medical History Past Medical History: Asthma, Thyroid Disorder History of Any Multi-Drug Resistant Organisms: None Reported Past Surgical History: No Surgical Hx Reported Past Anesthesia/Blood Transfusion Reactions: No Reported Reaction Past Psychological History: No Psychological Hx Reported Smoking Status: Current every day smoker Past Alcohol Use History: Occasional Past Drug Use History: Marijuana - Past Family History Father Additional Family Medical History / Comment(s): hip surgery General Exam - General Exam Comments Initial Comments: GENERAL: Patient is well-developed and well-nourished. Patient is nontoxic and in no acute distress. HEAD: Atraumatic, normocephalic. EYES: Pupils equal round and reactive to light, extraocular movements intact, sclera anicteric, conjunctiva are normal. Eyelids were unremarkable. ENT: Nares patent, oropharynx clear without exudates. Moist mucous membranes. NECK: Normal range of motion, supple without lymphadenopathy or JVD. LUNGS: Unlabored respirations. Breath sounds clear to auscultation bilaterally and equal. No wheezes rales or rhonchi. HEART: Regular rate and rhythm without murmurs, rubs or gallops. ABDOMEN: Soft, nontender, normoactive bowel sounds. No guarding, no rebound. No masses appreciated. : Deferred MUSCULOSKELETAL: Normal extremities with adequate strength and normal range of motion, no pitting or edema. No clubbing or cyanosis. NEUROLOGICAL: Patient is alert and oriented x 3. Motor and sensory are also intact. Cranial nerves II through XII grossly intact. Symmetrical smile. Normal speech, normal gait. PSYCH: Normal mood, normal affect. SKIN: Warm, Dry, normal turgor, no rashes or lesions noted. Limitations: no limitations Course Vital Signs 01/24/21 01/24/21 19:04 20:40 Temperature 98.0 F 97.9 F Pulse Rate 76 80 Respiratory 20 18 Rate Blood Pressure 120/81 118/71 O2 Sat by Pulse 99 98 Oximetry Medical Decision Making - Medical Decision Making Patient is a 25-year-old male here with concerns of a pill stuck in his throat. His exam is unremarkable, is in no acute distress, tolerating liquids here in the ER. His chest x-ray shows no acute abnormality. Discussed with patient that this tablet should dissolve on its own, continue to increase his fluid intake including carbonated beverages. He can follow up with his doctor. Patient is stable for discharge. Patient is in agreement with this plan of care. Return parameters were discussed with the patient and they verbalized understanding. Case discussed with Dr. Millard. Disposition Clinical Impression: Esophagitis Disposition: HOME SELF-CARE Condition: Stable Instructions (If sedation given, give patient instructions): Esophageal Foreign Body (ED) Additional Instructions: Please return to the Emergency Department if symptoms worsen or any other concerns. The pills should dissolve, continue to drink lots of fluids, carbonated beverages as discussed. Follow up with your primary care physician. Is patient prescribed a controlled substance at d/c from ED?: No Referrals: Ray Young Jr, DO [Primary Care Provider] - 1-2 days
[2021-01-24 20:42] VITALS: BP 118/71; PULSE 80; RESP 18; TEMP 97.9
== END 2021-01-24 20:40 | disposition home or self-care (01) ==
LOC: EC 18:49
DX: K20.90 Esophagitis, unspecified without bleeding (principal); F12.90 Cannabis use, unspecified, uncomplicated; F17.200 Nicotine dependence, unspecified, uncomplicated; J45.909 Unspecified asthma, uncomplicated
CPT/HCPCS: 71046; 99284

== ENCOUNTER 2021-01-25 21:23 | Emergency (ER) | payer OTHER ==
[2021-01-25 21:55] VITALS: BP 128/87; PULSE 81; RESP 18; TEMP 98.4
--- NOTE | 2021-01-25 23:06 | ED ---
General Adult HPI - General Chief complaint: ENT Stated complaint: Motrin stuck in throat Source: patient Mode of arrival: ambulatory Limitations: no limitations - History of Present Illness Initial comments: Dictation was produced using [employer] dictation software. please excuse any grammatical, word or spelling errors. This patient was cared for during a federal and state declared state of emergency secondary to Covid 19 Chief Complaint: 25-year-old male presents with foreign body sensation in the throat History of Present Illness: 25-year-old male he states that a day and a half ago he swallowed 2 Motrin pills to help with some dental pain. He states that he felt like the pills got stuck in his throat. He was able to spit up one of the pills however felt like one pill is stuck in his throat on the left side for the last day and a half. Upon arriving to the emergency department states his symptoms dramatically improved. States he does not have any trouble drinking however he does note that he has been having some difficulties with eating. He denies any sensation of any foreign bodies currently. The ROS documented in this emergency department record has been reviewed and confirmed by me. Those systems with pertinent positive or negative responses have been documented in the HPI. All other systems are other negative and/or noncontributory. PHYSICAL EXAM: General Impression: Alert and oriented x3, not in acute distress HEENT: Normocephalic atraumatic, extra-ocular movements intact, pupils equal and reactive to light bilaterally, mucous membranes moist, no drooling, tolerating oral intake, no respiratory distress. There appears to be a little 2 mm ulcer in the baclofen his oropharynx Cardiovascular: Heart regular rate and rhythm Chest: Able to complete full sentences, no retractions, no tachypnea Abdomen: abdomen soft, non-tender, non-distended, no organomegaly Musculoskeletal: Pulses present and equal in all extremities, no peripheral edema Motor: no focal deficits noted Neurological: CN II-XII grossly intact, no focal motor or sensory deficits noted Skin: Intact with no visualized rashes Psych: Normal affect and mood ED course: 25-year-old male presents to the emergency department for possible esophageal pill signs upon arrival are within acceptable limits. In the emergency department states his symptoms dramatically improved. He states he does not feel like the pill is stuck in his throat anymore. Patient's tolerating oral intake. Patient was discharged. He is given follow-up with GI doctor for outpatient dysphasia workup. Patient is advised to stay well- hydrated however to drink his calories and advance his diet as tolerated. Return precautions discussed. Patient is agreeable to discharge. - Related Data Home Medications Medication Instructions Recorded Confirmed Ibuprofen [Motrin Ib] 600 mg PO TID PRN 03/16/18 03/20/19 Previous Rx's Medication Instructions Recorded Naproxen [EC-Naproxen] 500 mg PO BID #20 tablet. 03/20/19 Allergies Allergy/AdvReac Type Severity Reaction Status Date / Time No Known Allergies Allergy Verified 01/25/21 21:54 Review of Systems ROS Statement: Those systems with pertinent positive or pertinent negative responses have been documented in the HPI. ROS Other: All systems not noted in ROS Statement are negative. Past Medical History Past Medical History: Asthma, Thyroid Disorder History of Any Multi-Drug Resistant Organisms: None Reported Past Surgical History: No Surgical Hx Reported Past Anesthesia/Blood Transfusion Reactions: No Reported Reaction Past Psychological History: No Psychological Hx Reported Smoking Status: Current every day smoker Past Alcohol Use History: Occasional Past Drug Use History: Marijuana - Past Family History Father Additional Family Medical History / Comment(s): hip surgery General Exam Limitations: no limitations Course Vital Signs 01/25/21 21:52 Temperature 98.4 F Pulse Rate 81 Respiratory 18 Rate Blood Pressure 128/87 O2 Sat by Pulse 97 Oximetry Disposition Clinical Impression: Esophageal foreign body Disposition: HOME SELF-CARE Condition: Fair Instructions (If sedation given, give patient instructions): Esophageal Foreign Body (ED) Is patient prescribed a controlled substance at d/c from ED?: No Referrals: Karen Hathaway MD [STAFF PHYSICIAN] - 1-2 days Time of Disposition: 23:05
== END 2021-01-25 23:15 | disposition home or self-care (01) ==
LOC: EC 21:23
DX: T18.108A Unspecified foreign body in esophagus causing other injury, initial encounter (principal); J45.909 Unspecified asthma, uncomplicated; F12.90 Cannabis use, unspecified, uncomplicated; F17.200 Nicotine dependence, unspecified, uncomplicated
CPT/HCPCS: 99282

== ENCOUNTER 2021-02-02 23:43 | Emergency (ER) | payer OTHER ==
[2021-02-02 23:49] VITALS: BP 125/67; PULSE 103; RESP 20; TEMP 98.2
[2021-02-03] MEDS ORDERED: AMOXIC-POT CLAV 875MG STARTER PACK 2 TAB BTL PO STA (00:34)
[2021-02-03] MEDS ORDERED: IBUPROFEN 800 MG TAB PO STA (00:34)
[2021-02-03] MEDS ORDERED: IBUPROFEN 600 MG STARTER PACK 4 TAB BTL PO STA (00:34)
[2021-02-03] MEDS ORDERED: ACET/COD 300 MG/30 MG STARTER PACK 6 TAB BTL PO STA (00:34)
[2021-02-03] MEDS ORDERED: Acetaminophen-Codeine 300-30mg TAB PO STA (00:34)
[2021-02-03] MEDS ORDERED: CIPROFLOXACIN HCL 500 MG TAB PO STA (00:34)
--- NOTE | 2021-02-03 00:35 | ED ---
Extremity Problem HPI - General Chief complaint: Skin/Abscess/Foreign Body Stated complaint: foot injury Time Seen by Provider: 02/03/21 00:17 Source: family, RN notes reviewed, old records reviewed Mode of arrival: ambulatory Limitations: no limitations - History of Present Illness Initial comments: This is a 25-year-old male to the ER for evaluation. Patient stepped on a nail his left foot prior travel. Mailed to go shoe issue. Patient has significant swelling to the left but he was able to pull the nail out without significant difficulty. Patient has no other complaints or injuries. Tetanus is up-to-date MD Complaint: extremity pain, other ((Toe, foot pain secondary to nail foreign body) -: hour(s) Location: left, toe, other (Foot) History of Same: No Radiation: proximal Severity scale (1-10): 5 Quality: aching Consistency: constant Improves with: nothing Worsens with: nothing Associated Symptoms: denies other symptoms - Related Data Home Medications Medication Instructions Recorded Confirmed Ibuprofen [Motrin Ib] 600 mg PO TID PRN 03/16/18 03/20/19 Previous Rx's Medication Instructions Recorded Naproxen [EC-Naproxen] 500 mg PO BID #20 tablet. 03/20/19 Allergies Allergy/AdvReac Type Severity Reaction Status Date / Time No Known Allergies Allergy Verified 02/02/21 23:49 Review of Systems ROS Statement: Those systems with pertinent positive or pertinent negative responses have been documented in the HPI. ROS Other: All systems not noted in ROS Statement are negative. Past Medical History Past Medical History: Asthma, Thyroid Disorder History of Any Multi-Drug Resistant Organisms: None Reported Past Surgical History: No Surgical Hx Reported Past Anesthesia/Blood Transfusion Reactions: No Reported Reaction Past Psychological History: ADD/ADHD Smoking Status: Current every day smoker Past Alcohol Use History: Occasional Past Drug Use History: Marijuana - Past Family History Father Additional Family Medical History / Comment(s): hip surgery General Exam Limitations: no limitations General appearance: alert, in no apparent distress, anxious Head exam: Present: atraumatic, normocephalic, normal inspection Eye exam: Present: normal appearance, PERRL, EOMI. Absent: scleral icterus, conjunctival injection, periorbital swelling ENT exam: Present: normal exam, mucous membranes moist Neck exam: Present: normal inspection. Absent: tenderness, meningismus, lymphadenopathy Respiratory exam: Present: normal lung sounds bilaterally. Absent: respiratory distress, wheezes, rales, rhonchi, stridor Cardiovascular Exam: Present: normal rhythm, tachycardia, normal heart sounds. Absent: systolic murmur, diastolic murmur, rubs, gallop, clicks GI/Abdominal exam: Present: soft, normal bowel sounds. Absent: distended, tenderness, guarding, rebound, rigid Extremities exam: Present: normal inspection, full ROM, normal capillary refill, other (Puncture wound left great toe area with swelling). Absent: tenderness, pedal edema, joint swelling, calf tenderness Back exam: Present: normal inspection Neurological exam: Present: alert, oriented X3, CN II-XII intact Psychiatric exam: Present: normal affect, normal mood Skin exam: Present: warm, dry, intact, normal color. Absent: rash Course Vital Signs 02/02/21 23:44 Temperature 98.2 F Pulse Rate 103 H Respiratory 20 Rate Blood Pressure 125/67 O2 Sat by Pulse 100 Oximetry - Reevaluation(s) Reevaluation #1: 02/03/21 01:17 Medical record is reviewed Reevaluation #2: 02/03/21 01:17 Patient informed of findings here in the emergency department Medical Decision Making - Medical Decision Making White female the puncture wound left foot. Patient placed on antibiotics tetanus is up-to-date. X-ray otherwise negative and patient can be discharged home - Radiology Data Radiology results: report reviewed (X-ray left foot is negative for acute disease), image reviewed Disposition Clinical Impression: Puncture wound of skin from metal nail, Puncture wound of foot Disposition: HOME SELF-CARE Condition: Good Instructions (If sedation given, give patient instructions): Puncture Wound (ED) Is patient prescribed a controlled substance at d/c from ED?: No Referrals: Ray Young Jr, [Primary Care Provider] - 1-2 days
--- NOTE | 2021-02-03 01:16 | XR ---
EXAM: XR Left Foot Complete, 3 or More Views CLINICAL HISTORY: Left foot pain. TECHNIQUE: Frontal, lateral and oblique views of the left foot. COMPARISON: No previous study. FINDINGS: Bones/joints: Mild hallux valgus deformity. No acute fracture, dislocation, or destructive process be The calcaneus is unremarkable. Soft tissues: Soft tissues are within normal limits. No radiopaque foreign body. IMPRESSION: 1. Mild hallux valgus deformity. 2. No acute fracture, dislocation, or destructive process.
== END 2021-02-03 01:32 | disposition home or self-care (01) ==
LOC: EC 23:43
DX: S91.332A Puncture wound without foreign body, left foot, initial encounter (principal); F17.200 Nicotine dependence, unspecified, uncomplicated; W45.0XXA Nail entering through skin, initial encounter
CPT/HCPCS: 99284

== ENCOUNTER 2021-10-29 10:31 | Emergency (ER) | payer OTHER ==
[2021-10-29 11:00] VITALS: BP 107/71; PULSE 67; RESP 18; TEMP 97
--- NOTE | 2021-10-29 12:54 | ED ---
General Adult HPI - General Chief complaint: Upper Respiratory Infection Stated complaint: congestion Time Seen by Provider: 10/29/21 12:20 Source: patient Mode of arrival: ambulatory Limitations: no limitations - History of Present Illness Initial comments: This 26-year-old male presents to the emergency department with congestion and cough 2 days. Patient states he was at work on Friday and left due to not feeling well. Patient states he did vomit one time on Friday and continued to drink lots of fluids and water and then began to feel better. Patient states he woke up Friday morning with a cough, dull headache, and nasal congestion. Patient states his headache has resolved, however, he still does have a cough and he is bringing up some clear mucus. He states he has not been vaccinated for COVID-19. Patient denies any chest pain, shortness of breath, abdominal pain, diarrhea, hemoptysis, blood in sputum, dizziness, headache, fever, change in vision. - Related Data Home Medications Medication Instructions Recorded Confirmed Ibuprofen [Motrin Ib] 600 mg PO TID PRN 03/16/18 03/20/19 Previous Rx's Medication Instructions Recorded Naproxen [EC-Naproxen] 500 mg PO BID #20 tablet. 03/20/19 Amoxic-Pot Clav 875-125Mg 1 tab PO Q12HR #20 tablet 02/03/21 [Augmentin 875-125] Ciprofloxacin HCl [Cipro] 500 mg PO Q12HR #20 tablet 02/03/21 Albuterol Sulfate [Albuterol 1 - 2 puff PO Q4-6H #8.5 gm 10/29/21 Sulfate Hfa] Allergies Allergy/AdvReac Type Severity Reaction Status Date / Time No Known Allergies Allergy Verified 10/29/21 11:00 Review of Systems ROS Statement: Those systems with pertinent positive or pertinent negative responses have been documented in the HPI. ROS Other: All systems not noted in ROS Statement are negative. Past Medical History Past Medical History: Asthma, Thyroid Disorder History of Any Multi-Drug Resistant Organisms: None Reported Past Surgical History: No Surgical Hx Reported Past Anesthesia/Blood Transfusion Reactions: No Reported Reaction Past Psychological History: ADD/ADHD Smoking Status: Current every day smoker Past Alcohol Use History: Occasional Past Drug Use History: Marijuana - Past Family History Father Additional Family Medical History / Comment(s): hip surgery General Exam Limitations: no limitations General appearance: alert, in no apparent distress Head exam: Present: atraumatic, normocephalic Eye exam: Present: normal appearance, EOMI ENT exam: Present: normal exam, mucous membranes moist Neck exam: Present: full ROM Respiratory exam: Present: normal lung sounds bilaterally. Absent: respiratory distress, wheezes, rales, rhonchi, stridor Cardiovascular Exam: Present: regular rate, normal rhythm, normal heart sounds. Absent: systolic murmur, diastolic murmur, rubs, gallop, clicks GI/Abdominal exam: Present: soft, normal bowel sounds. Absent: distended, tenderness, guarding, rebound, rigid Extremities exam: Present: full ROM Back exam: Present: full ROM. Absent: tenderness, CVA tenderness (R), CVA tenderness (L) Neurological exam: Present: alert, oriented X3, CN II-XII intact Psychiatric exam: Present: normal affect, normal mood Skin exam: Present: warm, dry, intact, normal color. Absent: rash Course Vital Signs 10/29/21 10:56 Temperature 97.0 F L Pulse Rate 67 Respiratory 18 Rate Blood Pressure 107/71 O2 Sat by Pulse 99 Oximetry Medical Decision Making - Medical Decision Making This 26-year-old male presents to the emergency department with nasal congestion and cough 2 days. Patient tested positive for COVID-19. Patient denies any chest pain, shortness of breath, abdominal pain, headache. Patient sent home with strict return precautions. Conservative treatment discussed. Albuterol inhaler prescribed. Patient verbally agreed to plan. Patient to follow-up with primary care provider next 1-2 days. Patient sent home in stable condition. My attending is Dr. Solis. - Lab Data Lab Results 10/29/21 Range/Units 11:03 Coronavirus (PCR) Detected A (Not Detectd) Disposition Clinical Impression: COVID-19 Disposition: HOME SELF-CARE Condition: Stable Instructions (If sedation given, give patient instructions): Coronavirus Disease 2019 (COVID-19) Additional Instructions: Please return to the emergency department with any concerning, new, or worsening symptoms. Please follow-up with primary care provider next 1-2 days. Please take [id number]-[id number] zinc, vitamin C, vitamin D. Take Tylenol or Motrin as directed. Advised to get a pulse oximeter from [facility] and to return to the emergency department oxygen is ever below 90%. Prescriptions: Albuterol Sulfate [Albuterol Sulfate Hfa] 1 - 2 puff PO Q4-6H #8.5 gm Is patient prescribed a controlled substance at d/c from ED?: No Referrals: Ray Young Jr, [Primary Care Provider] - 1-2 days Time of Disposition: 12:56
== END 2021-10-29 13:10 | disposition home or self-care (01) ==
LOC: EC 10:31
DX: U07.1 COVID-19 (principal); J45.909 Unspecified asthma, uncomplicated; F17.200 Nicotine dependence, unspecified, uncomplicated
CPT/HCPCS: 87635; 99283

== ENCOUNTER 2022-03-30 18:34 | Emergency (ER) | payer OTHER ==
[2022-03-30 19:28] VITALS: BP 121/71; PULSE 79; RESP 18; TEMP 98.1
[2022-03-30] MEDS ORDERED: IBUPROFEN 800 MG TAB PO STA (22:40)
--- NOTE | 2022-03-30 22:42 | ED ---
URI HPI - General Chief Complaint: Upper Respiratory Infection Stated Complaint: head cold Source: patient Mode of arrival: ambulatory Limitations: no limitations - History of Present Illness Initial Comments: Patient is a 26-year-old male presented with a chief complaint of congestion. Patient states he has seasonal allergies which normally involves congestion however this feels worse. Patient also endorses a mild headache. Denies fever, chills, shortness of breath, chest pain, and other concerns. States his sister has been sick at home with vomiting. - Related Data Home Medications Medication Instructions Recorded Confirmed Ibuprofen [Motrin Ib] 600 mg PO TID PRN 03/16/18 03/20/19 Previous Rx's Medication Instructions Recorded Naproxen [EC-Naproxen] 500 mg PO BID #20 tablet. 03/20/19 Amoxic-Pot Clav 875-125Mg 1 tab PO Q12HR #20 tablet 02/03/21 [Augmentin 875-125] Ciprofloxacin HCl [Cipro] 500 mg PO Q12HR #20 tablet 02/03/21 Albuterol Sulfate [Albuterol 1 - 2 puff PO Q4-6H #8.5 gm 10/29/21 Sulfate Hfa] Allergies Allergy/AdvReac Type Severity Reaction Status Date / Time No Known Allergies Allergy Verified 03/30/22 19:27 Review of Systems ROS Statement: Those systems with pertinent positive or pertinent negative responses have been documented in the HPI. ROS Other: All systems not noted in ROS Statement are negative. Past Medical History Past Medical History: Asthma, Thyroid Disorder History of Any Multi-Drug Resistant Organisms: None Reported Past Surgical History: No Surgical Hx Reported Past Anesthesia/Blood Transfusion Reactions: No Reported Reaction Past Psychological History: ADD/ADHD Smoking Status: Current every day smoker Past Alcohol Use History: Occasional Past Drug Use History: Marijuana - Past Family History Father Additional Family Medical History / Comment(s): hip surgery General Exam Limitations: no limitations General appearance: alert, in no apparent distress Head exam: Present: atraumatic, normocephalic, normal inspection Eye exam: Present: normal appearance, PERRL, EOMI. Absent: scleral icterus, conjunctival injection, periorbital swelling ENT exam: Present: normal oropharynx Neck exam: Present: normal inspection, full ROM Respiratory exam: Present: normal lung sounds bilaterally. Absent: respiratory distress, wheezes, rales, rhonchi, stridor Cardiovascular Exam: Present: regular rate, normal rhythm, normal heart sounds. Absent: systolic murmur, diastolic murmur, rubs, gallop, clicks Neurological exam: Present: alert, oriented X3, CN II-XII intact Psychiatric exam: Present: normal affect, normal mood Skin exam: Present: warm, dry, intact, normal color. Absent: rash Course Vital Signs 03/30/22 19:26 Temperature 98.1 F Pulse Rate 79 Respiratory 18 Rate Blood Pressure 121/71 O2 Sat by Pulse 97 Oximetry Medical Decision Making - Medical Decision Making This is a 26-year-old male who presents with congestion and headache. Thorough history and examination were performed. Patient looks well. Denies chest pain and shortness of breath. COVID-19 and influenza A/B are not detected. Results discussed with patient. Patient may be experiencing symptoms due to allergy or viral upper respiratory infection. He was given Motrin 800 for headache and Flonase for congestion. He will be discharged with symptomatic education. Patient states claritin works well for him and he will pick some up at the pharmacy. Instructed to follow up with his primary care provider in one to 2 days. Patient verbalizes understanding and is agreeable to this plan. Dr. Victoria is my attending. - Lab Data Lab Results 03/30/22 03/30/22 Range/Units 19:31 19:31 Coronavirus (PCR) Not Detected (Not Detectd) Influenza Type A RNA Not Detected (Not Detectd) Influenza Type B (PCR) Not Detected (Not Detectd) Disposition Clinical Impression: Common cold Disposition: HOME SELF-CARE Condition: Good Instructions (If sedation given, give patient instructions): Upper Respiratory Infection (ED) Additional Instructions: Please use Flonase as directed. Take Claritin or Zyrtec for runny nose and other allergy symptoms. Take anti-inflammatories such as Motrin for headache and increase fluids as much as possible. Follow-up with primary care provider in one to 2 days. Return to the emergency department if you experience new, concerning, or worsening symptoms. Is patient prescribed a controlled substance at d/c from ED?: No Referrals: Ray Young Jr, [Primary Care Provider] - 1-2 days Time of Disposition: 22:42
[2022-03-30] MEDS ORDERED: FLUTICASONE 50MCG/SPRAY NASAL 16GM EA NOSTRIL SCH (22:45)
== END 2022-03-30 23:16 | disposition home or self-care (01) ==
LOC: EC 18:34
DX: J00 Acute nasopharyngitis [common cold] (principal); Z20.822 Contact with and (suspected) exposure to COVID-19; J45.909 Unspecified asthma, uncomplicated; F17.200 Nicotine dependence, unspecified, uncomplicated; F12.90 Cannabis use, unspecified, uncomplicated; Z79.51 Long term (current) use of inhaled steroids
CPT/HCPCS: 87502; 87635; 99284

== ENCOUNTER 2022-06-15 11:35 | Emergency (ER) | payer OTHER ==
--- NOTE | 2022-06-15 14:22 | CT ---
EXAMINATION TYPE: CT brain nestor myers DATE OF EXAM: 06/15/2022 COMPARISON: None HISTORY: pain after fall off long board and hit his head. CT DLP: 1368.4 mGycm Automated exposure control for dose reduction was used. TECHNIQUE: CT scan of the head and cervical spine are performed without contrast. FINDINGS: There is no acute intracranial hemorrhage, mass effect, or midline shift identified. The ventricles and sulci are within normal limits in size. The globes are intact and the visualized sin uses are clear. Cervical spine is visualized in its entirety from C1 through upper thoracic levels and demonstrates s atisfactory alignment without evidence of acute fracture or dislocation. Prevertebral soft tissue ap pears within normal limits. The C1-C2 articulation is unremarkable. IMPRESSION: 1. There is no acute fracture or dislocation evident in the cervical spine. 2. No acute intracranial hemorrhage, mass effect, or midline shift is seen.
[2022-06-15] MEDS ORDERED: KETOROLAC 15 MG/ML 1 ML VIAL IM STA (14:25)
--- NOTE | 2022-06-15 14:59 | XR ---
Bilateral RIBS HISTORY: Trauma. COMPARISON: None. TECHNIQUE: 8 views of the ribs were obtained. FINDINGS: There is no rib fracture or focal intraosseous abnormality. There is no pleural thickening or pleural effusion. IMPRESSION: No significant abnormality of the ribs.
--- NOTE | 2022-06-15 15:50 | ED ---
Head Injury HPI - General Chief complaint: Head Injury Stated complaint: fall from skateboard, head injury Time Seen by Provider: 06/15/22 12:45 Source: patient Mode of arrival: ambulatory Limitations: no limitations - History of Present Illness Initial comments: Patient is a 27-year-old male presenting with chief complaint of head injury. Patient was on his long board today when he hit a crack in the sidewalk and fell backwards. Patient landed on his right shoulder and back of the head. Patient is complaining of headache and neck pain as well as right-sided back pain. Patient believes that he had a brief loss of consciousness that lasted a few seconds. No nausea or vomiting. No dizziness. No vision or hearing changes. No chest pain or shortness of breath. No abdominal pain. No hematuria. No weakness, numbness, tingling. - Related Data Home Medications Medication Instructions Recorded Confirmed Ibuprofen [Motrin Ib] 600 mg PO TID PRN 03/16/18 03/20/19 Previous Rx's Medication Instructions Recorded Naproxen [EC-Naproxen] 500 mg PO BID #20 tablet. 03/20/19 Amoxic-Pot Clav 875-125Mg 1 tab PO Q12HR #20 tablet 02/03/21 [Augmentin 875-125] Ciprofloxacin HCl [Cipro] 500 mg PO Q12HR #20 tablet 02/03/21 Albuterol Sulfate [Albuterol 1 - 2 puff PO Q4-6H #8.5 gm 10/29/21 Sulfate Hfa] Allergies/Adverse reactions: Allergies Allergy/AdvReac Type Severity Reaction Status Date / Time No Known Allergies Allergy Verified 06/15/22 12:06 Review of Systems ROS Statement: Those systems with pertinent positive or pertinent negative responses have been documented in the HPI. ROS Other: All systems not noted in ROS Statement are negative. Past Medical History Past Medical History: Asthma, Thyroid Disorder History of Any Multi-Drug Resistant Organisms: None Reported Past Surgical History: No Surgical Hx Reported Past Anesthesia/Blood Transfusion Reactions: No Reported Reaction Past Psychological History: ADD/ADHD Smoking Status: Current every day smoker Past Alcohol Use History: Occasional Past Drug Use History: Marijuana - Past Family History Father Additional Family Medical History / Comment(s): hip surgery General Exam Limitations: no limitations General appearance: alert, in no apparent distress Head exam: Present: atraumatic, normocephalic, normal inspection Eye exam: Present: normal appearance, PERRL, EOMI. Absent: scleral icterus, periorbital swelling, periorbital tenderness Pupils: Present: normal accommodation Neck exam: Present: normal inspection, full ROM. Absent: tenderness Respiratory exam: Present: normal lung sounds bilaterally. Absent: respiratory distress, wheezes, rales, rhonchi, stridor Cardiovascular Exam: Present: regular rate, normal rhythm, normal heart sounds. Absent: systolic murmur, diastolic murmur, rubs, gallop, clicks GI/Abdominal exam: Present: soft. Absent: distended, tenderness, guarding, rebound, rigid Extremities exam: Present: normal inspection, full ROM Back exam: Present: normal inspection, full ROM, paraspinal tenderness. Absent: vertebral tenderness Neurological exam: Present: alert, oriented X3, CN II-XII intact Expanded Patient oriented to: Present: person, place, time Speech: Present: fluid speech Cranial nerves: EOM's Intact: Normal, Tongue Deviation: Normal, Facial Sensation: Normal Cerebellar function: Finger to Nose: Normal Sensory exam: Upper Extremity Light Touch: Normal, Lower Extremity Light Touch: Normal Motor strength exam: RUE: 5, LUE: 5, RLE: 5, LLE: 5 Eye Response: (4) open spontaneously Motor Response: (6) obeys commands Verbal Response: (5) oriented [place] Total: 15 Psychiatric exam: Present: normal affect, normal mood Skin exam: Present: warm, dry, intact, normal color. Absent: rash Course Vital Signs 06/15/22 06/15/22 12:03 16:18 Temperature 97.3 F L 98.2 F Pulse Rate 72 71 Respiratory 16 15 Rate Blood Pressure 116/81 115/74 O2 Sat by Pulse 99 98 Oximetry Medical Decision Making - Medical Decision Making Patient is a 27-year-old male presenting with chief complaint of head injury. Patient fell off of his long board today after hitting a crack in the sidewalk, he fell backwards onto the right shoulder and back of his head. Patient states he had a brief loss of consciousness that lasted for a few seconds. On examination there are no focal neurological deficits, extraocular motions are intact, no vertebral body tenderness, neck has full range of motion, no vertebral body tenderness, no vomiting or dizziness, no vision changes, extraocular motions are intact, PERRLA. Patient was placed in c-collar out of precaution. CT of the brain and cervical spine shows no acute process. X-ray of the ribs shows no fracture or acute abnormality. Patient appears stable for discharge with outpatient follow-up at this time. Follow-up with PCP. Report back to ER with any new or worsening symptoms. Discussed return parameters and answered all questions. Patient conveyed verbal understanding and agreed to the plan. I discussed this case in detail with my attending Dr. Rockwell. Disposition Clinical Impression: Head injury Disposition: HOME SELF-CARE Condition: Good Instructions (If sedation given, give patient instructions): Concussion (ED), Head Injury (ED), Post Concussion Syndrome (ED) Additional Instructions: Follow-up with PCP this week. Report back to ER if any new or worsening symptoms. Is patient prescribed a controlled substance at d/c from ED?: No Referrals: Ray Young Jr, [Primary Care Provider] - 1-2 days Time of Disposition: 15:50
[2022-06-15 16:19] VITALS: BP 115/74; PULSE 71; RESP 15; TEMP 98.2
== END 2022-06-15 16:18 | disposition home or self-care (01) ==
LOC: EC 11:35
DX: S09.90XA Unspecified injury of head, initial encounter (principal); M54.2 Cervicalgia; M54.9 Dorsalgia, unspecified; J45.909 Unspecified asthma, uncomplicated; E07.9 Disorder of thyroid, unspecified; F17.200 Nicotine dependence, unspecified, uncomplicated; V00.131A Fall from skateboard, initial encounter
CPT/HCPCS: 71110; 72125; 70450; 99284; 96372; J1885

== ENCOUNTER 2022-07-27 15:28 | Emergency (ER) | payer OTHER ==
[2022-07-27 15:37] VITALS: BP 130/82; PULSE 76; RESP 18; TEMP 98.8
[2022-07-27] MEDS ORDERED: SODIUM CHLORIDE 0.9% 1,000 ML IV STA (16:12)
--- NOTE | 2022-07-27 16:47 | ED ---
Nausea/Vomiting/Diarrhea HPI - General Chief complaint: Nausea/Vomiting/Diarrhea Stated complaint: Dehydrated Time Seen by Provider: 07/27/22 16:33 Source: patient, RN notes reviewed Mode of arrival: ambulatory Limitations: no limitations - History of Present Illness Initial comments: This is a pleasant 27-year-old male comes ER requesting a work note. Patient states he drank too much alcohol last night was vomiting this morning. Patient was unable to go to work. He called in sick. Patient states he feels much better at this time. No nausea, no pain. No headache, no fever or chills, no changes in vision or hearing, no sore throat or difficulty with speech, no neck pain, no chest pain or shortness of breath, no abdominal pain, no nausea or vomiting, no changes in urination or bowel movements, no numbness or tingling, no extremity pain, no skin rashes or lesions. Past medical, surgical, social, and family history reviewed. MD complaint: nausea, vomiting - Related Data Home Medications Medication Instructions Recorded Confirmed Ibuprofen [Motrin Ib] 600 mg PO TID PRN 03/16/18 03/20/19 Previous Rx's Medication Instructions Recorded Naproxen [EC-Naproxen] 500 mg PO BID #20 tablet. 03/20/19 Amoxic-Pot Clav 875-125Mg 1 tab PO Q12HR #20 tablet 02/03/21 [Augmentin 875-125] Ciprofloxacin HCl [Cipro] 500 mg PO Q12HR #20 tablet 02/03/21 Albuterol Sulfate [Albuterol 1 - 2 puff PO Q4-6H #8.5 gm 10/29/21 Sulfate Hfa] Allergies Allergy/AdvReac Type Severity Reaction Status Date / Time No Known Allergies Allergy Verified 07/27/22 15:37 Review of Systems ROS Statement: Those systems with pertinent positive or pertinent negative responses have been documented in the HPI. ROS Other: All systems not noted in ROS Statement are negative. Past Medical History Past Medical History: Asthma, Thyroid Disorder History of Any Multi-Drug Resistant Organisms: None Reported Past Surgical History: No Surgical Hx Reported Past Anesthesia/Blood Transfusion Reactions: No Reported Reaction Past Psychological History: ADD/ADHD Smoking Status: Vaper Past Alcohol Use History: Occasional Past Drug Use History: Marijuana - Past Family History Father Additional Family Medical History / Comment(s): hip surgery General Exam Limitations: no limitations General appearance: alert, in no apparent distress Head exam: Present: atraumatic, normocephalic, normal inspection Eye exam: Present: normal appearance, PERRL, EOMI. Absent: scleral icterus, conjunctival injection, periorbital swelling ENT exam: Present: normal exam, mucous membranes moist Neck exam: Present: normal inspection. Absent: tenderness, meningismus, lymphadenopathy Respiratory exam: Present: normal lung sounds bilaterally. Absent: respiratory distress, wheezes, rales, rhonchi, stridor Cardiovascular Exam: Present: regular rate, normal rhythm, normal heart sounds. Absent: systolic murmur, diastolic murmur, rubs, gallop, clicks GI/Abdominal exam: Present: soft, normal bowel sounds. Absent: distended, tenderness, guarding, rebound, rigid Extremities exam: Present: normal inspection, full ROM, normal capillary refill. Absent: tenderness, pedal edema, joint swelling, calf tenderness Back exam: Present: normal inspection Neurological exam: Present: alert, oriented X3, CN II-XII intact Psychiatric exam: Present: normal affect, normal mood Skin exam: Present: warm, dry, intact, normal color. Absent: rash Course Vital Signs 07/27/22 15:35 Temperature 98.8 F Pulse Rate 76 Respiratory 18 Rate Blood Pressure 130/82 O2 Sat by Pulse 98 Oximetry Medical Decision Making - Medical Decision Making Patient was told to return to the ER for any signs or symptoms worsen. Told to return immediately if any other problems arise. All questions answered. Treatment plan discussed. Patient in agreement Every effort has been made to ensure accuracy of this dictation. However, due to the limitations of electronic medical records and dictation devices, errors in charting still occur. Display Screen [employer]ator Dr. Parkinson Disposition Clinical Impression: Gastritis, Hemolytic-uremic syndrome Disposition: HOME SELF-CARE Condition: Good Instructions (If sedation given, give patient instructions): Acute Nausea and Vomiting (ED) Additional Instructions: Follow-up with your regular physician as directed. Return to the ER immediately if any symptoms worsen, new symptoms arise, or any other problems develop. Is patient prescribed a controlled substance at d/c from ED?: No Referrals: Ray Young Jr, DO [Doctor of Osteopathic Medicine] - 08/02/22 Time of Disposition: 16:47
== END 2022-07-27 16:50 | disposition home or self-care (01) ==
LOC: EC 15:28
DX: K29.70 Gastritis, unspecified, without bleeding (principal); D59.30 Hemolytic-uremic syndrome, unspecified; F17.290 Nicotine dependence, other tobacco product, uncomplicated; J45.909 Unspecified asthma, uncomplicated; E07.9 Disorder of thyroid, unspecified; Z79.51 Long term (current) use of inhaled steroids
CPT/HCPCS: 99283

== ENCOUNTER 2024-07-08 06:55 | Emergency (ER) | payer OTHER ==
[~2024-07-08 06:55] MED LIST: ETOMIDATE 2 MG/ML 10 ML VIAL ONE; ROCURONIUM 10 MG/ML (5 ML VIAL) IV ONE; SUCCINYLCHOLINE CHLORIDE 200 MG/10 ML VIAL IV ONE
[2024-07-08] MEDS: MIDAZOLAM 1 MG/ML 5 ML VIAL IV STA (06:56)
[2024-07-08] MEDS: SUCCINYLCHOLINE CHLORIDE 200 MG/10 ML VIAL IV STA (06:58)
[2024-07-08 07:16] LABS: HCT 44.7 % (39.0-53.0); HGB 14.1 gm/dL (13.0-17.5); Hypochromasia Moderate; MCH 32.5 pg (25.0-35.0); MCHC 31.5 g/dL (31.0-37.0); Macrocytosis Slight; Mean Platelet Volume 8.1; Platelet Count 251 k/uL (150-450); RBC 4.34 m/uL (4.30-5.90); RDW 11.9 % (11.5-15.5); WBC 9.1 k/uL (3.8-10.6)
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
[2024-07-08 07:26] LABS: ALT 114 U/L (4-49); African American GFR (CKD) >90 (>60 ml/min/1.73 sqM); Albumin 4.3 g/dL (3.5-5.0); Alcohol 15 mg/dL; Anion Gap 13 mmol/L; Blood Urea Nitrogen 8 mg/dL (9-20); Calcium 8.9 mg/dL (8.4-10.2); Carbon Dioxide 17 mmol/L (22-30); Chloride 108 mmol/L (98-107); Glucose 248 mg/dL (74-99); INR 1.1 (<1.2); Non-African American GFR(CKD) >90 (>60 ml/min/1.73 sqM); Partial Thromboplastin Time 31.8 sec (22.0-30.0); Sodium 138 mmol/L (137-145); Total Bilirubin 0.7 mg/dL (0.2-1.3); Total Protein 6.6 g/dL (6.3-8.2)
[2024-07-08 07:29] LABS: AST 203 U/L (17-59); Alkaline Phosphatase 52 U/L (38-126); Potassium 3.8 mmol/L (3.5-5.1)
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
[2024-07-08] MEDS: KETAMINE 10 MG/ML 20 ML VIAL IV STA (07:39)
[2024-07-08] MEDS: DIPH,PERTUS(ACELL)TETVAC-LF 0.5 ML VIAL IM ONE (07:44)
[2024-07-08] MEDS: TRANEXAMIC 1,000 MG/100ML-NACL 1,000 MG in SALINE 1 100ML.BAG IV STA (07:47)
[2024-07-08 07:51] LABS: Eosinophils # (M) 0.09 k/uL (0-0.7); Lymphocytes # (M) 4.91 k/uL (1.0-4.8); Monocytes # (M) 0.55 k/uL (0-1.0); Neutrophils # (M) 3.55 k/uL (1.3-7.7); Neutrophils % (M) 39 %; Nucleated Red Blood Cells 0 /100 WBC (0-0); Total Cells Counted 100
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
[2024-07-08 07:52] LABS: RBC Morphology Normal
[2024-07-08 07:54] LABS: Amorphous Sediment,Urine Occasional /hpf; Appearance,Urine Cloudy (Clear); Bilirubin,Urine Negative (Negative); Blood,Urine Large (Negative); Color,Urine Light Yellow; Glucose,Urine (UA) Negative (Negative); Hyaline Casts,Urine 2 /lpf (0-2); Ketones,Urine Negative (Negative); Leukocyte Esterase,Urine Negative (Negative); Mucus,Urine Rare /hpf; Nitrite,Urine Negative (Negative); Protein,Urine Trace (Negative); RBC,Urine 7 /hpf (0-5); Specific Gravity,Urine 1.017 (1.001-1.035); Urobilinogen,Urine <2.0 mg/dL (<2.0); WBC,Urine 3 /hpf (0-5)
[2024-07-08 07:56] LABS: Amphetamine Screen,Urine Not Detected (NotDetected); Barbiturate Screen,Urine Not Detected (NotDetected); Benzodiazepines Screen,Urine Not Detected (NotDetected); Cocaine Screen,Urine Not Detected (NotDetected); Methadone Screen, Urine Not Detected (NotDetected); Opiate Screen,Urine Not Detected (NotDetected); Oxycodone Screen, Urine Not Detected (NotDetected); Phencyclidine Screen,Urine Not Detected (NotDetected); Tricyclic Antidepressant,Urine Not Detected (NotDetected); Urn Cannabinoid Scrn Detected (NotDetected)
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
[2024-07-08] MEDS ORDERED: MIDAZOLAM 1 MG/ML 5 ML VIAL IV STA (08:21)
[2024-07-08] MEDS: fentaNYL (PF) 50 MCG/ML 2 ML AMP IVP STA (08:23)
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
== END 2024-07-08 08:29 | disposition other institution (70) ==
LOC: EDBD → MERGE 06:55 → EC 06:55
CPT/HCPCS: 31500; 32551; 36415; 36556; 70450; 70486; 71045; 71260; 72125; 72170; 74177; 80053; 80306; 80320; 81001; 84484; 85025; 85610; 85730; 86850; 86900; 86901; 86920; 90471; 90715; 96365; 96375; 99291